=== PATIENT | male | born 1980 | race Two or more races ===

== ENCOUNTER 2022-10-12 12:45 | Emergency (ER) | payer OTHER, SELFPAY ==
[2022-10-12 13:22] VITALS: BP 125/83; PULSE 125; RESP 18; TEMP 36.7; O2SAT 100
--- NOTE | 2022-10-12 15:47 | ED.URI ---
HPI - URI/Sore Throat General Chief Complaint: Upper Respiratory Infection Stated Complaint: fever head farhat throat Time Seen by Provider: 10/12/22 15:47 Source: patient, RN notes reviewed and old records reviewed Mode of arrival: ambulatory Limitations: no limitations History of Present Illness HPI Narrative: 42 year old male who presents to [facility] care with complaints of cough, congestion, fever, body aches , headaches for the past 3 days. Patient reports that he has had positive exposure to flu from daughter. He reports that he has been taking Ibuprofen for his symptoms, denies any shortness of breath, reports general malaise. Patient has had COVID vaccinations but did not have flu shot. MD elicited complaint: cough and other (body aches) Onset (ago): day(s) (3) Pain scale (0-10): 6 Treatments prior to arrival: ibuprofen Related Data Home Medications Medication Instructions Recorded Confirmed cariprazine 1.5 mg capsule 1.5 mg PO Q72H 10/12/22 10/12/22 (Vraylar) escitalopram oxalate 20 mg tablet 20 mg PO DAILY 10/12/22 10/12/22 lisdexamfetamine 30 mg capsule 30 mg PO DAILY 10/12/22 10/12/22 (Vyvanse) Allergies Allergy/AdvReac Type Severity Reaction Status Date / Time No Known Allergies Allergy Verified 10/12/22 14:55 Review of Systems Review of Systems: CONSTITUTIONAL: Reports malaise, chills, sweats, or fever. EYES: Denies visual changes, redness, or discharge. ENT: Reports rhinorrhea, congestion, sinus pain,no otalgia and sore throat. CARDIOVASCULAR: Denies chest pain, palpitations, or edema. RESPIRATORY: Reports cough.? Denies dyspnea. GASTROINTESTINAL: Denies abdominal pain, nausea, vomiting, diarrhea SKIN: Denies rash or itching. MUSCULOSKELETAL: Reports myalgia. NEUROLOGIC: reports headache. All systems reviewed & are unremarkable except as noted in HPI and below PMFSH Past Medical History Medical History (Updated 10/17/22 @ 14:37 by Andreea Christie NP) ADHD (attention deficit hyperactivity disorder) Anxiety and depression Social History Social History (Updated 10/17/22 @ 14:38 by Andreea Christie NP) Smoking status: Never smoker Alcohol intake: current Alcohol use details: social Substance use: never Gender identity (if verbalized by the patient): Male Comments At time of signature, agree with nursing past medical, surgical, social and family history. There is no relevant family history pertinent to the presenting complaint Exam Narrative: GENERAL: Well-appearing, well-nourished, and in no acute distress. HEAD: Normocephalic EYES: PERRLA, conjunctivae clear ENT: Nares clear, turbinates edematous and erythematous, clear discharge. Mucous membranes moist. TM pearly maxwell with dull light reflex bilaterally; no tragal tenderness. Oropharynx erythematous without lesions. Tonsils not enlarged and without exudate, no drooling, no hoarseness, no trismus, uvula midline.post nasal drainage. NECK: Supple. No lymphadenopathy CHEST: Clear to auscultation, breath sounds equal. No wheezing, rhonchi, rales, or stridor. No respiratory distress, speaks in full sentences. harsh cough with SAO2 100% on room air HEART: Regular rate and rhythm. No murmur heard. SKIN: Warm, dry, no rash. NEURO: Alert and oriented x3. PSYCH: Normal mood and affect Course Course Emergency Course: Patient is aware of diagnosis, understands and agrees to treatment plan.? Anticipatory guidance given.? Patient agrees to follow-up as directed and is aware of reasons to seek care at the emergency department. Portions of this record may have been created with voice recognition software Level of Care: Express Care Visit Vital Signs Vital signs: Vital Signs Temperature 36.7 C 10/12/22 13:22 Pulse Rate 125 H 10/12/22 13:22 Respiratory Rate 18 10/12/22 13:22 Blood Pressure 125/83 10/12/22 13:22 Pulse Oximetry 100 10/12/22 13:22 Oxygen Delivery Room Air 10/12/22 13
== END 2022-10-12 16:04 | disposition home or self-care (01) ==
PROVIDERS: Emergency Provider Registered Nurse
DX: J11.1 Influenza due to unidentified influenza virus with other respiratory manifestations (principal)
CPT/HCPCS: 87804; 99213; G0463

== ENCOUNTER 2023-02-28 11:53 | Emergency (ER) | payer OTHER, SELFPAY ==
[2023-02-28] VITALS (13 sets, daily range): BP systolic 115–145; BP diastolic 83–103; PULSE 95–107; RESP 13–18; TEMP 36.3; O2SAT 96–100
--- NOTE | 2023-02-28 11:55 | ECG_ITS ---
Measurements Intervals [place] Rate: 114 P: 57 NH: 152 QRS: -16 QRSD: 97 T: 54 QT: 359 QTc: 496 Interpretive Statements SINUS TACHYCARDIA BASELINE ARTIFACT NONSPECIFIC T-WAVE ABNORMALITY BORDERLINE ECG NO PREVIOUS ECG AVAILABLE FOR COMPARISON Electronically Signed On 02-28-2023 16:51:28 CDT by Reynaldo Gomez M.D.
[2023-02-28 12:22] LABS: Basophils Absolute Auto 0.1 K/mm3 (0.0-0.1); Basophils Percent Auto 0.7 % (0.2-1.2); Eosinophils Absolute Auto 0.2 K/mm3 (0-0.3); Eosinophils Percent Auto 2.9 % (0-4.4); Hematocrit 48.5 % (42.0-52.0); Hemoglobin 16.2 g/dL (14.0-18.0); Immature Granulocyte Absolute 0.01 K/mm3 (0.00-0.031); Immature Granulocyte Percent A 0.1 % (0-0.5); Lymphocytes Percent Auto 35.8 % (18.3-44.2); Mean Corpuscular HGB Conc 33.4 g/dl (32-36); Mean Corpuscular Volume 86.9 fl (80-100); Mean Platelet Volume 9.1 fl (7.4-10.4); Monocytes Absolute Auto 0.5 K/mm3 (0.1-0.6); Monocytes Percent Auto 6.4 % (2.6-8.5); Neutrophils Absolute Auto 4.1 K/mm3 (1.3-6.7); Neutrophils Percent Auto 54.1 % (45.5-73.1); Platelet Count Result 298 k/mm3 (150-375); Red Blood Count 5.58 M/mm3 (4.6-6.20); Red Cell Distribution Width 13.7 % (11.5-14.5); White Blood Count 7.5 K/mm3 (4.5-10.0)
[2023-02-28 12:35] LABS: Alanine Aminotransferase 41 U/L (6-50); Albumin Level 4.5 g/dL (3.5-5.1); Alkaline Phosphatase 128 U/L (38-126); Anion Gap 7 mmol/L (8-16); Aspartate Amino Transferase 28 U/L (17-59); Bilirubin,Total 0.7 mg/dL (0.2-1.3); Blood Urea Nitrogen 13 mg/dL (9-20); Calcium 8.6 mg/dL (8.4-10.2); Carbon Dioxide 29 mmol/L (22-30); Chloride 101 mmol/L (98-107); Estimated CRCL calculation 111 ml/min; Estimated Glomerular Filt Rate > 60; Glucose 105 mg/dL (65-110); Potassium 3.8 mmol/L (3.4-5.0); Sodium 137 mmol/L (137-145)
--- NOTE | 2023-02-28 15:32 | ED.DIZZY ---
HPI - Dizziness General Chief Complaint: Dizziness Stated Complaint: dizziness, lightheaded Time Seen by Provider: 02/28/23 14:30 History of Present Illness HPI Narrative: Patient is a 42-year-old male with a history of anxiety presenting with lightheadedness. Patient states that starting this morning he noticed that he felt lightheaded. States that he had an episode of diaphoresis as well. States that he initially thought that it was just due to hunger so he had a meal but the sensation continued. States that he continues to just feel off . He denies chest pain or shortness of breath. Denies headache, numbness or weakness, abdominal pain, nausea or vomiting, diarrhea, leg swelling. Related Data Home Medications Medication Instructions Recorded Confirmed cariprazine 1.5 mg capsule 1.5 mg PO Q72H 10/12/22 10/12/22 (Vraylar) escitalopram oxalate 20 mg tablet 20 mg PO DAILY 10/12/22 10/12/22 lisdexamfetamine 30 mg capsule 30 mg PO DAILY 10/12/22 10/12/22 (Vyvanse) Allergies Allergy/AdvReac Type Severity Reaction Status Date / Time No Known Allergies Allergy Verified 02/28/23 12:03 Review of Systems Review of Systems: All systems reviewed & are unremarkable except as noted in HPI and below PMFSH Past Medical History Medical History ADHD (attention deficit hyperactivity disorder) Anxiety and depression Social History Social History Smoking status: Never smoker Alcohol intake: current Alcohol use details: social Substance use: never Living arrangements: with family Gender identity (if verbalized by the patient): Male Exam Narrative: GENERAL: Well-appearing, well-nourished, and in no acute distress. Pleasant and cooperative HEAD: Normocephalic, atraumatic. EYES: PERRLA and EOMI. ENT: Nares clear, no rhinorrhea or epistaxis. Mucous membranes moist. NECK: Supple. CHEST: Clear to auscultation. No respiratory distress. HEART: Tachycardic, regular rhythm. No murmur heard. Normal peripheral pulses. ABDOMEN: Soft, nontender, nondistended EXTREMITIES: Normal range of motion. No edema. SKIN: Warm, dry, no rash. NEURO: No focal deficits. Alert and oriented x3. PSYCH: Normal mood and affect. Course Vital Signs Vital signs: Vital Signs Temperature 97.4 F L 02/28/23 11:59 Pulse Rate 103 H 02/28/23 11:59 Respiratory Rate 18 02/28/23 11:59 Blood Pressure 145/103 H 02/28/23 11:59 Pulse Oximetry 99 02/28/23 11:59 Temperature 97.4 F L 02/28/23 11:59 Pulse Rate 98 02/28/23 17:41 Respiratory Rate 18 02/28/23 17:41 Blood Pressure 115/83 02/28/23 17:41 Pulse Oximetry 100 02/28/23 17:41 MDM - Dizziness MDM Narrative Medical decision making narrative: Patient is a 42-year-old male presenting with lightheadedness. Patient is tachycardic between 105 and 115. Vitals are otherwise within normal limits. EKG per my interpretation shows sinus tachycardia, normal axis and intervals, no ST elevations or depressions. No priors for comparison. Plan for fluids, blood work with troponin, dimer. Blood work is unremarkable. Troponin is undetectable. D-dimer is normal. On reevaluation following fluids, the patient states that he feels improved. States that currently he just feels tired. Discussed the reassuring work-up. Advised that he increase his fluid intake. Advised that he follow-up closely with his PCP. Appropriate return precautions given. Patient voiced understanding and is agreeable with plan. Discharged in stable condition. Differential Diagnosis Differential diagnosis: Likely orthostatic hypotension and other (vasovagal syncope, dehydration) Lab Data 02/28/23 12:11 02/28/23 12:11 Labs: Lab Results 02/28/23 02/28/23 02/28/23 Range/Units 12:11 12:11 15:41 WBC 7.5 (4.5-10.0) K/mm3 RBC 5.58 (4.6-6.20)
[2023-02-28] MEDS: SODIUM CHLORIDE 0.9% IV 1,000 ML 999 ML IV CONT (15:48)
[2023-02-28 16:07] LABS: Troponin I < 0.012 ng/mL (0.000-0.034)
[2023-02-28 16:08] LABS: D Dimer 0.33 ug/mL (<0.48)
== END 2023-02-28 17:42 | disposition home or self-care (01) ==
PROVIDERS: Emergency Medicine; Emergency Provider Emergency Medicine; PCP Family Medicine Sports Medicine
DX: F41.8 Other specified anxiety disorders (principal); F90.9 Attention-deficit hyperactivity disorder, unspecified type; F41.9 Anxiety disorder, unspecified; F32.A Depression, unspecified; R00.0 Tachycardia, unspecified; R94.31 Abnormal electrocardiogram [ECG] [EKG]
CPT/HCPCS: 36415; 80053; 84484; 85025; 85380; 93005; 96360; 99284; J7030